=== PATIENT | female | born 1965 | race Two or more races ===

== ENCOUNTER 2016-10-03 20:44 | Emergency (ER) | payer OTHER ==
[~2016-10-03] VITALS: Ht 152.4 cm; Wt 72.6 kg
[2016-10-03 20:48] VITALS: BP 121/71
[2016-10-03] MEDS ORDERED: SULF1TAB24 PO (21:11)
--- NOTE | 2016-10-03 21:11 | PHYS DOC ---
Past Medical History Past Medical History: Diabetes-Type II Past Surgical History: No Surgical History Alcohol Use: None Drug Use: None Adult General Chief Complaint Chief Complaint: WOUND CHECK [facility] HPI Patient is a 51 year old female with history of diabetes type 2 who presents today complaining of a blister to the right fourth toe that popped 3 days ago. Patient denies any fever. She states she takes diabetes medicine and follows up with her doctor at , she states her PCP instructed her to come to the ED to be evaluated. Review of Systems Review of Systems Constitutional: Denies fever or chills [] Eyes: Denies change in visual acuity, redness, or eye pain [] HENT: Denies nasal congestion or sore throat [] Respiratory: Denies cough or shortness of breath [] Cardiovascular: No additional information not addressed in HPI [] GI: Denies abdominal pain, nausea, vomiting, bloody stools or diarrhea [] : Denies dysuria or hematuria [] Musculoskeletal: blister to the right fourth toe Integument: Denies rash or skin lesions [] Neurologic: Denies headache, focal weakness or sensory changes [] Endocrine: Denies polyuria or polydipsia [] Current Medications Current Medications Current Medications Medications (Trade) Dose Ordered Sig/Yuni Start Time Stop Time Status Last Admin Dose Admin Acetaminophen/ Hydrocodone Bitart (Lortab 5/325) 1 tab 1X ONCE 10/03/16 21:30 10/03/16 21:31 Diphtheria/ Tetanus/Acell Pertussis (Boostrix) 0.5 ml ONCE ONCE 10/03/16 21:30 10/03/16 21:31 Allergies Allergies Allergies Coded Allergies Type Severity Reaction Last Updated Verified No Known Drug Allergies 10/03/16 No Physical Exam Physical Exam Constitutional: Well developed, well nourished, no acute distress, non-toxic appearance. [] HENT: Normocephalic, atraumatic, bilateral external ears normal, oropharynx moist, no oral exudates, nose normal. [] Eyes: PERRLA, EOMI, conjunctiva normal, no discharge. [] Neck: Normal range of motion, no tenderness, supple, no stridor. [] Cardiovascular:Heart rate regular rhythm, no murmur [] Lungs & Thorax: Bilateral breath sounds clear to auscultation [] Abdomen: Bowel sounds normal, soft, no tenderness, no masses, no pulsatile masses. [] Skin: Right fourth toe with an open blister-type wound approximately 1 x 2 cm. There is slight erythema around the area. There is no drainage from the area. Full range of motion to the toe. +2 right pedal pulse. Cap refill less than 2 seconds the right toes. Back: No tenderness, no CVA tenderness. [] Extremities: No tenderness, no cyanosis, no clubbing, ROM intact, no edema. [] Neurologic: Alert and oriented X 3, normal motor function, normal sensory function, no focal deficits noted. [] Psychologic: Affect normal, judgement normal, mood normal. [] Current Patient Data Vital Signs Vital Signs Date Time Temp Pulse Resp B/P (MAP) Pulse Ox O2 Delivery O2 Flow Rate FiO2 10/03/16 20:48 98.0 66 16 96 Room Air 98.0 EKG EKG [] Radiology/Procedures Radiology/Procedures [] Course & Med Decision Making Course & Med Decision Making Pertinent Labs and Imaging studies reviewed. (See chart for details) Patient is an infected wound from a blister to the right fourth toe. She is diabetic but states follows up with her PCP at [facility] and is on medication. She was given tetanus in the ED. She is to follow-up with her doctor as soon as she can. She was given tetanus in the ED. She was provided proper return precautions including to return to the ED if wound condition worsens. Infection right now appears superficial. Dragon Disclaimer Dragon Disclaimer This electronic medical record was generated, in whole or in part, using a voice recognition dictation system. Departure Departure Impression: Primary Impression: Infected blister of toe of right foot Disposition: 01 HOME, SELF-CARE Condition: STABLE Referrals: NO PCP (PCP) Follow-up with your doctor at [facility] this week Patient Instructions: Skin Infections Additional Instructions: You were seen for infected wound to the right fourth toe. We highly recommend you follow-up with the primary care doctor in the next 1 week. We highly recommend you keep the area clean and dry. Take the prescribed antibiotic until completed. Please return to the emergency room at any point symptoms worsen. Scripts Sulfamethoxazole/Trimethoprim (BACTRIM DS TABLET) 1 Each Tablet 1 TAB PO BID, #20 TAB Prov: BEEMARTA [employer] AGENT 10/03/16 Problem Qualifiers Primary Impression: Infected blister of toe of right foot Encounter type: initial encounter Qualified Codes: S90.424A - Blister ( nonthermal), right lesser toe(s), initial encounter; L08.9 - Local infection of the skin and subcutaneous tissue, unspecified MARTA GAMBOA APRN Oct 03, 2016 21:11
[2016-10-03] MEDS ORDERED: DIPHTH,PERTUSS(ACELL),TET TOX 0.5 ML DISP.SYRIN. VAX IM ONE (21:30)
[2016-10-03] MEDS ORDERED: HYDROcodone/APAP 5/325MG 1 TAB TABLET PO ONE (21:30)
== END 2016-10-03 21:24 | disposition home or self-care (01) ==
LOC: ER 20:44
DX: S90.424A Blister (nonthermal), right lesser toe(s), initial encounter (principal); E11.9 Type 2 diabetes mellitus without complications; X58.XXXA Exposure to other specified factors, initial encounter; Y93.89 Activity, other specified; Y99.8 Other external cause status; Y92.89 Other specified places as the place of occurrence of the external cause
CPT/HCPCS: 90471; 90715; 99283-25